=== PATIENT | male | born 1990 | race Caucasian/White ===

== ENCOUNTER 2016-12-15 12:24 | Emergency (ER) | payer OTHER ==
[~2016-12-15] VITALS: Ht 175.3 cm; Wt 74.8 kg
--- NOTE | 2016-12-15 12:49 | ED UPPER/LOWER EXTREMITY COMPL ---
History of Present Illness General Chief Complaint: Lower Extremity Injury Stated Complaint: LFT KNEE INJURY AT WORK Source: patient Exam Limitations: no limitations Vital Signs & Intake/Output Vital Signs & Intake/Output Vital Signs Date Time Temp Pulse Resp B/P B/P Pulse O2 O2 Flow FiO2 Mean Ox Delivery Rate 12/15 1341 98.3 89 15 124/74 100 Room Air 12/15 1248 99 Room Air 12/15 1232 98.3 104 18 146/83 97 Room Air Allergies Coded Allergies: No Known Allergies (10/22/15) Reconcile Medications No Known Home Medications Triage Note: 26 Y/O MALE C/O PAIN TO MEDIAL L KNEE; STATES HE WAS PULLING A PATIENT OVER IN BED AND "FELT A POP" IN L KNEE WHICH HAS BEEN CONSTANT SINCE. AMBULATORY WITH SLIGHT LIMP. DECLINES OFFER OF MEDS. WORKMANS COMP COMPLETED Triage Nurses Notes Reviewed? 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 Patient heard an audible popping sensation and states that ambulation makes worse. Patient has not taken any medications for symptoms. (REYNALDO CORONEL) Past History Travel History Traveled to [facility] past 21 day No Medical History Any Pertinent Medical History? none Neurological: NONE EENT: NONE Cardiovascular: NONE Respiratory: NONE Gastrointestinal: NONE Hepatic: NONE Renal: NONE Musculoskeletal: NONE Psychiatric: NONE Endocrine: NONE Tetanus Vaccine: Surgical History Surgical History: non-contributory Psychosocial History What is your primary language Hungarian Tobacco Use: Current Not Daily Family History Hx Contributory? No (REYNALDO CORONEL) Review of Systems Review of Systems Constitutional: Reports: no symptoms. EENTM: Reports: no symptoms. Respiratory: Reports: no symptoms. Cardiovascular: Reports: no symptoms. Gastrointestinal/Abdominal: Reports: no symptoms. Genitourinary: Reports: no symptoms. Musculoskeletal: Reports: see HPI, joint pain. Skin: Reports: no symptoms. Neurological/Psychological: Reports: no symptoms. Hematologic/Endocrine: Reports: no symptoms. Immunological: Reports: no symptoms. All Other Systems: Reviewed and Negative (REYNALDO CORONEL) Physical Exam Physical Exam General Appearance: no apparent distress, alert Neurologic/Tendon: normal sensation, normal motor functions, normal tendon functions, responds to pain, no evidence tendon injury, no pulse deficit Skin: intact, normal color, warm/dry Comments: Well-developed well-nourished no apparent distress. HEENT: Atraumatic, extraocular motion intact Neck: Supple, no lymphadenopathy Back: Nontender Respiratory: No respiratory distress Extremities: LEFT HIP- FULL AROM NONTENDER LEFT KNEE- NORMAL INSPECTION, LEFT MEDIAL JOINT LINE PAIN FULL AROM WITH FLEXION/EXTENSION POSITIVE VALGUS STRESS TEST WITH PAIN Neuro: Alert and oriented x3 Psych: Mood affect normal, normal memory normal judgment. (REYNALDO CORONEL) Progress Differential Diagnosis: arterial insufficiency, compartment syndrome, contusion, dislocation, DVT, fracture, gout, septic arthritis, sprain, tendon injury Plan of Care: Orders Procedure Date/time Status Durable Medical Equipment 12/15 1313 Active Due to history of present illness and exam findings patient has concerns of left MCL sprain. Colin wrap was applied pre-and post-neurovascular was intact crutches were administered for weightbearing as tolerated. No osseous injury noted and x-rays (REYNALDO CORONEL) Diagnostic Imaging: Viewed by Me: Radiology Read. Radiology Impression: no acute abnormality, no fracture Comments: PATIENT: YAHIR MENDEZ PRESENT AGE: 26 PATIENT ACCOUNT NO: [id number] : 92 LOCATION: [facility] ORDERING PHYSICIAN: REYNALDO PIZARRO SERVICE DATE: 12/15/16 EXAM TYPE: RAD - XRY-KNEE COMPLETE LEFT EXAMINATION: XR KNEE, LEFT CLINICAL INFORMATION: Left knee pain. Patient felt knee pop. COMPARISON: None TECHNIQUE: Four views of the left knee. FINDINGS: Trace knee effusion. Focal soft tissue swelling is seen adjacent to the tibial tuberosity. A discrete fracture line is not identified. The knee demonstrates normal alignment without joint space narrowing or additional findings. IMPRESSION: Focal soft tissue swelling is seen adjacent to the tibial tuberosity. If there is concern regarding ligamentous injury, MRI may be of further utility. No joint space narrowing or acute osseous abnormality. 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 Begin over -the-counter ibuprofen as directed for pain and inflammation. Begin using the crutches UNTIL YOU CAN walk without pain. Begin using the Colin wrap for swelling. If symptoms worsen return to emergency room. If no better in one week follow-up with orthopedic Dr. BRANDT Departure Forms: Customer Survey [employer] Employee [facility] General Discharge Information Prescriptions: Current Visit Scripts No Known Home Medications (ZOFIA PIZARRO,REYNALDO) PA/CONTROLS ENGINEER Co-Sign Statement Statement: ED Attending supervision documentation- [] I saw and evaluated the patient. I have also reviewed all the pertinent lab results and diagnostic results. I agree with the findings and the plan of care as documented in the PA's/CONTROLS ENGINEER's documentation. [X] I have reviewed the ED Record and agree with the PA's/CONTROLS ENGINEER's documentation. [] Additions or exceptions (if any) to the PAs/CONTROLS ENGINEER's note and plan are summarized below: [] (CATHY GONZALEZ,YAHIR Laughlin)
--- NOTE | 2016-12-15 13:12 | RADIOLOGY REPORT ---
EXAMINATION: XR KNEE, LEFT CLINICAL INFORMATION: Left knee pain. Patient felt knee pop. COMPARISON: None TECHNIQUE: Four views of the left knee. FINDINGS: Trace knee effusion. Focal soft tissue swelling is seen adjacent to the tibial tuberosity. A discrete fracture line is not identified. The knee demonstrates normal alignment without joint space narrowing or additional findings. IMPRESSION: Focal soft tissue swelling is seen adjacent to the tibial tuberosity. If there is concern regarding ligamentous injury, MRI may be of further utility. No joint space narrowing or acute osseous abnormality.
[2016-12-15 13:41] VITALS: BP 124/74
== END 2016-12-15 13:43 ==
LOC: ERH 12:24
DX: S83.412A Sprain of medial collateral ligament of left knee, initial encounter (principal); X58.XXXA Exposure to other specified factors, initial encounter; Y93.F9 Activity, other caregiving; Y92.239 Unspecified place in hospital as the place of occurrence of the external cause
CPT/HCPCS: 73562-LT